=== PATIENT | female | born 1995 | race Caucasian/White ===

== ENCOUNTER → 2023-12-27 12:25 | Outpatient (REF) | payer BC, SELFPAY ==
[2023-12-27 15:24] LABS: Urine Albumin Negative (Neg - Trace); Urine Bilirubin Negative (Negative); Urine Character Very Cloudy (Clear); Urine Color Yellow; Urine Glucose Negative (Negative); Urine Ketone Negative (Negative); Urine Leukocyte 2+ (Negative); Urine Nitrite Negative (Negative); Urine Occult Blood 2+ (Negative); Urine Urobilinogen Negative (Neg - 1+)
[2023-12-27 15:35] LABS: Urine Amorphous Seen; Urine Mucus Few
[2023-12-27 15:38] LABS: Urine Bacteria Many (Negative); Urine White Cell >100 /HPF (0-5)
== END ==
LOC: HWLAB 12:25
PROVIDERS: ATTENDING PHYSICIAN Nurse Practitioner
DX: N39.0 Urinary tract infection, site not specified (principal)
CPT/HCPCS: 81003; 81015; 87086; 87088; 87186

== ENCOUNTER → 2024-02-08 11:47 | Outpatient (REF) | payer BC, SELFPAY ==
[2024-02-08 19:36] LABS: Urine Albumin Negative (Neg - Trace); Urine Bilirubin Negative (Negative); Urine Character Clear (Clear); Urine Color Yellow; Urine Glucose Negative (Negative); Urine Ketone Negative (Negative); Urine Leukocyte Negative (Negative); Urine Nitrite Negative (Negative); Urine Occult Blood 1+ (Negative); Urine Urobilinogen Negative (Neg - 1+)
[2024-02-08 19:52] LABS: Urine Bacteria Moderate (Negative)
[2024-02-10 19:54] LABS: Bacterial Vaginosis by TMA Negative; Candida glabrata by TMA Negative; Candida species by TMA Negative; Trichomonas vaginalis by TMA Negative
== END ==
LOC: CLAB 11:47
PROVIDERS: ATTENDING PHYSICIAN Obstetrics & Gynecology
DX: N76.0 Acute vaginitis (principal); N39.0 Urinary tract infection, site not specified
CPT/HCPCS: 81003; 81015; 81513; 87086; 87481; 87661

== ENCOUNTER → 2024-05-14 10:15 | Outpatient (REF) | payer BC, SELFPAY ==
[2024-05-14 12:07] LABS: Free T4 0.99 ng/dl (0.78-2.19)
[2024-05-14 14:00] LABS: Free T3 3.02 pg/ml (2.77-5.27)
[2024-05-14 14:13] LABS: TSH 1.71 uIU/ml (0.47-4.68)
[2024-05-15 16:25] LABS: Thyroglobulin Antibodies <0.9 IU/mL (0.0-4.0); Thyroid Peroxidase Ab (TPO) 0.3 IU/mL (0.0-9.0)
== END ==
LOC: REG 10:15
PROVIDERS: ATTENDING PHYSICIAN Nurse Practitioner
DX: R53.83 Other fatigue (principal)
CPT/HCPCS: 36415; 84439; 84443; 84481; 86376; 86800

== ENCOUNTER → 2024-07-31 14:27 | Outpatient (REF) | payer BC, SELFPAY ==
[2024-07-31 15:25] LABS: Urine Albumin Trace (Neg - Trace); Urine Bilirubin Negative (Negative); Urine Character Clear (Clear); Urine Color Yellow; Urine Glucose Negative (Negative); Urine Ketone Negative (Negative); Urine Leukocyte 1+ (Negative); Urine Nitrite Positive (Negative); Urine Occult Blood 2+ (Negative); Urine Urobilinogen Negative (Neg - 1+)
[2024-07-31 15:41] LABS: Urine Bacteria Moderate (Negative); Urine White Cell 50-60 /HPF (0-5)
== END ==
LOC: REG 14:27
PROVIDERS: REFERRING PHYSICIAN Obstetrics & Gynecology
DX: N30.01 Acute cystitis with hematuria (principal)
CPT/HCPCS: 81003; 81015; 87086

== ENCOUNTER → 2024-08-04 11:50 | Outpatient (REF) | payer BC, SELFPAY ==
[2024-08-04 12:14] LABS: Urine Albumin Negative (Neg - Trace); Urine Bilirubin Negative (Negative); Urine Character Clear (Clear); Urine Color Yellow; Urine Glucose Negative (Negative); Urine Ketone Negative (Negative); Urine Leukocyte Negative (Negative); Urine Nitrite Negative (Negative); Urine Occult Blood Trace (Negative); Urine Urobilinogen Negative (Neg - 1+)
[2024-08-04 12:45] LABS: Urine Bacteria Moderate (Negative); Urine Red Blood Cell 0-2 /HPF (0-2)
== END ==
LOC: REG 11:50
PROVIDERS: REFERRING PHYSICIAN Obstetrics & Gynecology
DX: N39.0 Urinary tract infection, site not specified (principal)
CPT/HCPCS: 36415; 81003; 81015; 87086

== ENCOUNTER → 2024-10-29 10:11 | Outpatient (REF) | payer BC, SELFPAY ==
[2024-10-29 11:07] LABS: Urine Albumin Negative (Neg - Trace); Urine Bilirubin Negative (Negative); Urine Character Slightly Cloudy (Clear); Urine Color Yellow; Urine Glucose Negative (Negative); Urine Ketone Negative (Negative); Urine Leukocyte 2+ (Negative); Urine Nitrite Negative (Negative); Urine Occult Blood 4+ (Negative); Urine Specific Gravity 1.005 (<1.030); Urine Urobilinogen Negative (Neg - 1+)
[2024-10-29 11:41] LABS: Urine White Cell >100 /HPF (0-5)
[2024-10-29 11:44] LABS: Urine Bacteria Few (Negative)
== END ==
LOC: REG 10:11
PROVIDERS: ATTENDING PHYSICIAN Obstetrics & Gynecology; FAMILY PHYSICIAN Nurse Practitioner Adult Health
DX: N39.0 Urinary tract infection, site not specified (principal)
CPT/HCPCS: 81003; 81015; 87086

== ENCOUNTER → 2025-01-12 09:21 | Outpatient (REF) | payer BC, SELFPAY ==
[2025-01-12 09:53] LABS: % Basophils 0.4 % (0-2); % Immature Granulocytes 0.2 % (0-0.5); % Lymphocytes 34.9 % (20.5-51.1); % Monocytes 7.8 % (1.7-9.3); % Neutrophils 55.7 % (42.2-75.2); Absolute Eosinophils 0.1 10^3/uL (0-0.7); Absolute Lymphocytes 1.8 10^3/uL (1.2-3.4); Absolute Monocytes 0.4 10^3/uL (0.1-0.6); Absolute Neutrophils 2.8 10^3/uL (1.4-6.5); Hematocrit 40.4 % (37.0-47.0); Hemoglobin 13.5 g/dL (12.0-16.0); Mean Corp Hgb Conc. 33.4 g/dL (33.0-37.0); Mean Corpuscular Hgb 27.5 pg (27.0-31.0); Mean Corpuscular Volume 82.3 fL (81.0-99.0); Mean Platelet Volume 10.9 fL (7.4-10.4); Nucleated Red Blood Cells % 0 %; Platelet Count 220 10^3/uL (130-400); Red Blood Cell Count 4.91 10^6/uL (4.20-5.40)
[2025-01-12 10:28] LABS: ALT (SGPT) 18 U/L (0-35); AST (SGOT) 22 U/L (14-36); Albumin 4.7 g/dl (3.5-5.0); Alkaline Phosphatase 52 U/L (38-126); Blood Urea Nitrogen 19 mg/dl (7-17); Calcium 9.6 mg/dl (8.4-10.2); Carbon Dioxide 24 mmol/L (22-30); Chloride 106 mmol/L (98-107); Glucose 94 mg/dl (70-99); HDL Cholesterol 56 mg/dl; LDL Cholesterol, Calculated 152 mg/dl; Potassium 4.4 mmol/L (3.5-5.1); Sodium 141 mmol/L (135-145); Total Bilirubin 0.8 mg/dl (0.2-1.3); Total Cholesterol 232 mg/dl (50-199); Total Protein 7.6 g/dl (6.3-8.2); Triglyceride 121 mg/dl (10-149); Very Low Density Lipoprotein 24 mg/dl (0-30); eGFR > 60.00
[2025-01-12 10:55] LABS: Cortisol, Random 17.7 ug/dl; TSH Reflex To Free T4 2.89 uIU/ml (0.47-4.68)
== END ==
LOC: REG 09:21
DX: Z00.01 Encounter for general adult medical examination with abnormal findings (principal); R63.5 Abnormal weight gain
CPT/HCPCS: 36415; 80053; 80061; 82533; 84443; 85025

== ENCOUNTER → 2025-03-26 16:09 | Outpatient (REF) | payer BC, SELFPAY ==
[2025-03-27 14:31] LABS: tTG IgA Antibody 89.1 EU/ml (0-19); tTG IgG Antibody 7.4 EU/ml (0-19)
[2025-03-27 23:36] LABS: IgA 133 mg/dl (70-400)
== END ==
LOC: REG 16:09
PROVIDERS: ATTENDING PHYSICIAN Internal Medicine
DX: R76.8 Other specified abnormal immunological findings in serum (principal); R19.8 Other specified symptoms and signs involving the digestive system and abdomen
CPT/HCPCS: 36415; 82784; 83516; 86231

== ENCOUNTER 2025-04-04 06:24 | Day surgery (SDC) | payer BC, SELFPAY | END 2025-04-04 10:40 | disposition home or self-care (01) | LOC: GI 06:24 | PROVIDERS: ATTENDING PHYSICIAN Internal Medicine | DX: Z12.11 Encounter for screening for malignant neoplasm of colon (principal); K44.9 Diaphragmatic hernia without obstruction or gangrene; K22.89 Other specified disease of esophagus; R76.8 Other specified abnormal immunological findings in serum; R19.7 Diarrhea, unspecified; R11.2 Nausea with vomiting, unspecified; K62.1 Rectal polyp; K63.9 Disease of intestine, unspecified; K22.70 Barrett's esophagus without dysplasia; K90.0 Celiac disease; Z86.0100 Personal history of colon polyps, unspecified | CPT/HCPCS: 45380; 43239; 88305; 88342 ==

== ENCOUNTER → 2025-05-29 16:17 | Outpatient (REF) | payer BC, SELFPAY ==
[2025-05-29 17:17] LABS: Urine Character Slightly Cloudy (Clear)
[2025-05-29 17:35] LABS: Urine White Cell 50-60 /HPF (0-5)
== END ==
LOC: REG 16:17
PROVIDERS: ATTENDING PHYSICIAN Nurse Practitioner
DX: N39.0 Urinary tract infection, site not specified (principal)
CPT/HCPCS: 81003; 81015; 87086

== ENCOUNTER → 2025-08-19 17:06 | Outpatient (REF) | payer BC, SELFPAY ==
[2025-08-21 14:21] LABS: tTG IgA Antibody 20.1 EU/ml (0-19); tTG IgG Antibody 15.9 EU/ml (0-19)
== END ==
LOC: REG 17:06
PROVIDERS: ATTENDING PHYSICIAN Internal Medicine
DX: R76.89 Other specified abnormal immunological findings in serum (principal); R19.8 Other specified symptoms and signs involving the digestive system and abdomen
CPT/HCPCS: 36415; 82784; 83516; 86231